=== PATIENT | male | born 1945 | race Caucasian/White ===

== ENCOUNTER 2017-08-26 04:30 | Emergency (ER) | payer MEDICARE ==
[~2017-08-26] VITALS: Ht 165.1 cm; Wt 90.7 kg
[2017-08-26 08:10] LABS: Calcium, Ionized (POC) 1.16 mmol/L (1.10-1.46); Chloride (POC) 101 mmol/L (98-108); Creatinine (POC) 1.1 mg/dL (0.8-1.3); Glucose (ISTAT POC) 112 mg/dL (70-99); Hemoglobin (POC) 18.4 g/dL (13.5-17.5); Potassium (POC) 4.1 mmol/L (3.5-5.5); Sodium (POC) 141 mmol/L (135-148); Total CO2 (POC) 31 mmol/L (21-32)
== END 2017-08-26 09:22 | disposition home or self-care (01) ==
LOC: ER 04:30
PROVIDERS: Emergency Medicine
DX: S89.92XA Unspecified injury of left lower leg, initial encounter (principal); W23.0XXA Caught, crushed, jammed, or pinched between moving objects, initial encounter
CPT/HCPCS: 80047; 85014; 99284

== ENCOUNTER 2017-09-15 19:03 | Inpatient (IN) | payer MEDICARE ==
[~2017-09-15] VITALS: Ht 162.6 cm; Wt 91.3 kg
[2017-09-15 19:16] LABS: Calcium, Ionized (POC) 1.17 mmol/L (1.10-1.46); Chloride (POC) 102 mmol/L (98-108); Glucose (ISTAT POC) 263 mg/dL (70-99); Hemoglobin (POC) 18.4 g/dL (13.5-17.5); Potassium (POC) 3.9 mmol/L (3.5-5.5); Sodium (POC) 141 mmol/L (135-148); Total CO2 (POC) 25 mmol/L (21-32)
[2017-09-15 19:26] LABS: pH Blood Arterial 6.84 (7.35-7.45)
[2017-09-15 19:27] LABS: PCO2 Arterial 93.3 mmHg (35-45); PO2 Arterial 65.3 mmHg (80-100)
[2017-09-15 19:36] LABS: Hemoglobin 17.7 g/dL (13.5-17.5); Mean Corpuscular HGB 32.5 pg (26.0-34.0); Mean Corpuscular HGB Conc 31.6 g/dL (31.5-36.5); Mean Platelet Volume 11.6 fL (9.1-12.4); NRBC ABSOLUTE 0.03 K/mm3 (0.00-0.02); NRBC Auto 0.2 /100 WBC (0.0-0.2); Platelet Count 121 K/mm3 (150-400); RDW Coefficient Variation 11.6 % (11.7-14.2); RDW Standard Deviation 44.2 fL (35.1-46.3); Red Blood Cell Count 5.45 M/mm3 (4.30-5.90); White Blood Cell Count 12.83 K/mm3 (4.00-11.30)
[2017-09-15 19:48] LABS: Hematocrit 56.1 % (37.0-53.0); Mean Corpuscular Volume 103 fL (80-100)
[2017-09-15 19:51] LABS: Albumin, Blood 3.3 g/dL (3.4-5.0); Albumin/Globulin Ratio 0.9 (0.8-1.8); Bilirubin, Total 0.6 mg/dL (0.1-1.0); Bun/Creatinine Ratio 14.9 (12.0-20.0); Calcium, Blood 9.3 mg/dL (8.5-10.1); Creatinine, Blood 1.95 mg/dL (0.60-1.20); Globulin, Blood 3.7 g/dL (2.2-4.0); Magnesium, Blood 2.8 mg/dL (1.6-2.4)
[2017-09-15 19:54] LABS: BAND PERCENT MAN 4 % (0-8); BASOPHILS ABSOLUTE MAN 0.12 K/mm3 (0.00-0.23); BASOPHILS PERCENT MAN 1 % (0-2); EOSINOPHILS ABSOLUTE MAN 0.25 K/mm3 (0.00-0.68); EOSINOPHILS PERCENT MAN 2 % (0-6); LYMPHOCYTES ABSOLUTE MAN 6.03 K/mm3 (0.84-5.20); LYMPHOCYTES PERCENT MAN 47 % (21-46); MONOCYTES ABSOLUTE MAN 0.38 K/mm3 (0.16-1.47); MONOCYTES PERCENT MAN 3 % (4-13); NEUTROPHILS ABSOLUTE MAN 6.03 K/mm3 (1.96-9.15); SEG NEUTROPHILS PERCENT MAN 43 % (41-73); TOTAL CELLS COUNTED 100
[2017-09-15 20:06] LABS: Troponin I 0.508 ng/mL (0.000-0.040)
[2017-09-15 20:25] LABS: PCO2 Arterial 83.2 mmHg (35-45); pH Blood Arterial 7.09 (7.35-7.45)
[2017-09-16 00:41] LABS: PCO2 Arterial 48.9 mmHg (35-45); PO2 Arterial 89.4 mmHg (80-100); pH Blood Arterial 7.23 (7.35-7.45)
[2017-09-16 01:02] LABS: International Normalized Ratio 1.57; Prothrombin Time Results 15.8 Sec (9.7-11.5)
[2017-09-16] MEDS ORDERED: ASPI81CH PO (02:08)
[2017-09-16] MEDS ORDERED: ATOR40TA PO (02:13)
[2017-09-16] MEDS ORDERED: MAGNESIUM400 MG PO (02:14)
[2017-09-16] MEDS ORDERED: MELA3 PO (02:15)
[2017-09-16] MEDS ORDERED: Omeprazole20 M1 PO (02:16)
[2017-09-16] MEDS ORDERED: CLOP75 PO (02:17)
[2017-09-16] MEDS ORDERED: Verotin-Gr Cap1 EACH PO (02:17)
[2017-09-16] MEDS ORDERED: QUET25 PO (02:18)
[2017-09-16] MEDS ORDERED: THIA100 PO (02:19)
[2017-09-16] MEDS ORDERED: CHOL10002 (02:20)
[2017-09-16] MEDS ORDERED: LIDO700A20 TOP (02:21)
[2017-09-16] MEDS ORDERED: LISI5 PO (02:22)
[2017-09-16] MEDS ORDERED: OXYC5 PO (02:24)
[2017-09-16] MEDS ORDERED: PERIDEX15 ML MM ×2 (02:31→02:32)
[2017-09-16] MEDS ORDERED: ACET325 PO (02:34)
[2017-09-16 04:15] LABS: Hematocrit 43.9 % (37.0-53.0); Hemoglobin 14.4 g/dL (13.5-17.5); Mean Corpuscular HGB 31.5 pg (26.0-34.0); Mean Corpuscular HGB Conc 32.8 g/dL (31.5-36.5); Mean Platelet Volume 10.2 fL (9.1-12.4); Platelet Count 154 K/mm3 (150-400); RDW Coefficient Variation 11.9 % (11.7-14.2); Red Blood Cell Count 4.57 M/mm3 (4.30-5.90); White Blood Cell Count 34.67 K/mm3 (4.00-11.30)
[2017-09-16 04:20] LABS: Mean Corpuscular Volume 96 fL (80-100)
[2017-09-16 04:37] LABS: Magnesium, Blood 1.9 mg/dL (1.6-2.4)
[2017-09-16 04:40] LABS: Alanine Aminotransfer (ALT/SGP 165 U/L (12-78); Albumin, Blood 2.9 g/dL (3.4-5.0); Albumin/Globulin Ratio 1.1 (0.8-1.8); Alk Phos 83 U/L (50-136); Anion Gap 14 mmol/L (6-16); Aspartate Aminotrans (AST/SGOT 210 U/L (12-37); Blood Urea Nitrogen 34 mg/dL (8-24); Bun/Creatinine Ratio 14.9 (12.0-20.0); CO2, Blood 22 mmol/L (21-32); Chloride, Blood 110 mmol/L (98-108); Creatinine, Blood 2.28 mg/dL (0.60-1.20); Globulin, Blood 2.6 g/dL (2.2-4.0); Glomerular Filtration Rate 30 (60-); Glucose, Blood 241 mg/dL (70-99); Potassium, Blood 3.7 mmol/L (3.5-5.5); Sodium, Blood 146 mmol/L (136-145); Total Protein, Blood 5.5 g/dL (6.4-8.2); Vancomycin, Random 45.5 ug/mL
[2017-09-16 04:56] LABS: BAND PERCENT MAN 13 % (0-8); BASOPHILS PERCENT MAN 0 % (0-2); EOSINOPHILS PERCENT MAN 0 % (0-6); LYMPHOCYTES ABSOLUTE MAN 1.04 K/mm3 (0.84-5.20); LYMPHOCYTES PERCENT MAN 3 % (21-46); MONOCYTES ABSOLUTE MAN 1.73 K/mm3 (0.16-1.47); MONOCYTES PERCENT MAN 5 % (4-13); NEUTROPHILS ABSOLUTE MAN 31.89 K/mm3 (1.96-9.15); SEG NEUTROPHILS PERCENT MAN 79 % (41-73); TOTAL CELLS COUNTED 100
[2017-09-16 05:02] LABS: Calcium, Blood 6.8 mg/dL (8.5-10.1); Phosphorus, Blood 3.6 mg/dL (2.5-4.9)
[2017-09-16 05:33] LABS: PCO2 Arterial 40.9 mmHg (35-45); PO2 Arterial 87.9 mmHg (80-100)
[2017-09-16 05:34] LABS: pH Blood Arterial 7.29 (7.35-7.45)
[2017-09-16 14:31] LABS: Vancomycin, Random 20.8 ug/mL
[2017-09-16 17:50] LABS: PCO2 Arterial 37.5 mmHg (35-45); PO2 Arterial 76.5 mmHg (80-100); pH Blood Arterial 7.39 (7.35-7.45)
[2017-09-17 04:46] LABS: BASOPHILS ABSOLUTE AUTO 0.03 K/mm3 (0.00-0.23); BASOPHILS PERCENT AUTO 0 % (0-2); EOSINOPHILS ABSOLUTE AUTO 0.02 K/mm3 (0.00-0.68); EOSINOPHILS PERCENT AUTO 0 % (0-6); Hematocrit 32.1 % (37.0-53.0); Hemoglobin 11.4 g/dL (13.5-17.5); IMMATURE GRAN ABSOLUTE AUTO 0.07 K/mm3 (0.00-0.10); IMMATURE GRAN PERCENT AUTO 0 % (0-1); LYMPHOCYTES ABSOLUTE AUTO 1.03 K/mm3 (0.84-5.20); LYMPHOCYTES PERCENT AUTO 6 % (21-46); MONOCYTES ABSOLUTE AUTO 1.24 K/mm3 (0.16-1.47); MONOCYTES PERCENT AUTO 8 % (4-13); Mean Corpuscular HGB 32.9 pg (26.0-34.0); Mean Corpuscular HGB Conc 35.5 g/dL (31.5-36.5); Mean Platelet Volume 11.7 fL (9.1-12.4); NEUTROPHILS ABSOLUTE AUTO 14.22 K/mm3 (1.96-9.15); NEUTROPHILS PERCENT AUTO 86 % (41-73); Platelet Count 91 K/mm3 (150-400); RDW Coefficient Variation 11.9 % (11.7-14.2); Red Blood Cell Count 3.46 M/mm3 (4.30-5.90); White Blood Cell Count 16.61 K/mm3 (4.00-11.30)
[2017-09-17 04:47] LABS: Mean Corpuscular Volume 93 fL (80-100)
[2017-09-17 05:02] LABS: Albumin, Blood 2.7 g/dL (3.4-5.0); Anion Gap 12 mmol/L (6-16); Blood Urea Nitrogen 48 mg/dL (8-24); Bun/Creatinine Ratio 12.3 (12.0-20.0); CO2, Blood 29 mmol/L (21-32); Calcium, Blood 6.7 mg/dL (8.5-10.1); Chloride, Blood 101 mmol/L (98-108); Glomerular Filtration Rate 16 (60-); Glucose, Blood 154 mg/dL (70-99); Phosphorus, Blood 1.9 mg/dL (2.5-4.9); Potassium, Blood 3.7 mmol/L (3.5-5.5); Sodium, Blood 142 mmol/L (136-145)
== END 2017-09-17 13:24 | DRG 871 ==
LOC: ER 19:03 → ICUE 19:46 → ICUW 19:46 → ICUE 21:05
PROVIDERS: Emergency Medicine; Internal Medicine; Internal Medicine Critical Care Medicine; Nurse Practitioner Acute Care; Pharmacist
PROC: 5A1945Z Respiratory Ventilation, 24-96 Consecutive Hours (ICD-10-PCS; principal; 2017-09-15)
PROC: 5A12012 Performance of Cardiac Output, Single, Manual (ICD-10-PCS; 2017-09-15)
PROC: 0B21XEZ Change Endotracheal Airway in Trachea, External Approach (ICD-10-PCS; 2017-09-15)
PROC: 3E033XZ Introduction of Vasopressor into Peripheral Vein, Percutaneous Approach (ICD-10-PCS; 2017-09-15)
PROC: 06HY33Z Insertion of Infusion Device into Lower Vein, Percutaneous Approach (ICD-10-PCS; 2017-09-16)
DX: A41.9 Sepsis, unspecified organism (principal); J69.0 Pneumonitis due to inhalation of food and vomit; R65.21 Severe sepsis with septic shock; I46.9 Cardiac arrest, cause unspecified; J96.02 Acute respiratory failure with hypercapnia; J96.01 Acute respiratory failure with hypoxia; N17.0 Acute kidney failure with tubular necrosis; Z51.5 Encounter for palliative care; A04.72 Enterocolitis due to Clostridium difficile, not specified as recurrent; Z66 Do not resuscitate; E87.2 Acidosis; E87.4 Mixed disorder of acid-base balance; I69.354 Hemiplegia and hemiparesis following cerebral infarction affecting left non-dominant side; E87.0 Hyperosmolality and hypernatremia; G93.1 Anoxic brain damage, not elsewhere classified; E87.1 Hypo-osmolality and hyponatremia; R00.1 Bradycardia, unspecified; G25.3 Myoclonus; E87.6 Hypokalemia; R73.9 Hyperglycemia, unspecified; D69.6 Thrombocytopenia, unspecified; Z78.1 Physical restraint status; F17.220 Nicotine dependence, chewing tobacco, uncomplicated
CPT/HCPCS: 31500; 31720; 36415; 36556; 36600; 51702; 70450; 71045; 76770; 80047; 80053; 80069; 80202; 82330; 82550; 82803; 82947; 83036; 83605; 83690; 83735; 83880; 84100; 84484; 85014; 85025; 85049; 85610; 85730; 87493; 93005; 93010; 93308; 94002; 94003; 94640; 96360; 99291-25; 99292; C9113; J1644; J1815; J1953; J1956; J2250; J2543; J3010; J3370; J3411; J7030; J7050; J7060; J7070; P9041